=== PATIENT | male | born 1975 | race African-American/Black ===

== ENCOUNTER 2018-01-14 18:54 | Emergency (ER) | payer MEDICAID ==
[~2018-01-14] VITALS: Ht 175.3 cm; Wt 81.6 kg
[2018-01-14 19:01] VITALS: BP 132/72
[2018-01-14 19:30] VITALS: BP_SYST 138; BP_DIAS 6; BP_DIAS 76
[2018-01-14 19:33] LABS: BASOPHILS % (AUTO) 1.4 % (0.0-2.0); EOSINOPHILS % (AUTO) 0.5 % (0.0-3.0); HEMATOCRIT 49.4 % (42.0-52.0); HEMOGLOBIN 17.2 G/DL (14.2-18.0); LYMPHOCYTES % (AUTO) 44.5 % (20.0-45.0); MEAN CORPUSCULAR VOLUME 89 FL (80-99); NEUTROPHILS % (AUTO) 47.6 % (45.0-75.0); PLATELET COUNT 322 K/UL (150-450); RED BLOOD COUNT 5.52 M/UL (4.70-6.10); RED CELL DISTRIBUTION WIDTH 10.8 % (11.6-14.8); WHITE BLOOD COUNT 15.1 K/UL (4.8-10.8)
--- NOTE | 2018-01-14 19:41 | Emergency Room Report ---
History of Present Illness General Chief Complaint: Syncope Source: Patient, Medical Record Present Illness HPI Patient was disharged completely alert and then was seen unresponsive in the driveway laying on the ground. He has been using PCP. Please refer to prior evaluation. He had to be lifted off the ground onto a gurney. Allergies: Coded Allergies: No Known Allergies (Unverified , 01/14/18) Patient History Limited by: medical condition Past Medical History: none Social History: Reports: drug use - PCP Social History Narrative with friends Reviewed Nursing Documentation: PMH: Agreed, PSxH: Agreed Nursing Documentation-PMH Past Medical History: No History, Except For Review of Systems All Other Systems: negative except mentioned in HPI - see prior history, currently, unable to give answers Physical Exam Vital Signs Date Time Temp Pulse Resp B/P (MAP) Pulse Ox O2 Delivery O2 Flow Rate FiO2 01/14/18 19:01 97.7 93 37 132/72 98 Room Air 97.7 Sp02 EP Interpretation: reviewed, normal General Appearance: other - eyes open, not verbalize, mucle rigidity, Stupor Head: normocephalic, atraumatic Eyes: bilateral eye PERRL, bilateral eye EOMI - vertical nystagmus, bilateral eye Scleral Injection ENT: moist mucus membranes Neck: supple Respiratory: lungs clear, normal breath sounds Cardiovascular #1: regular rate, rhythm Cardiovascular #2: 2+ radial (R) Gastrointestinal: normal inspection, non tender, no mass, non-distended, decreased bowel sounds Musculoskeletal: back normal, other - no deformity Neurologic: motor strength/tone normal, DTRs symmetric, other - ebulic, holding muscles rigidly, eyes open, occasionally with tongue protruding/mouth open Psychiatric: other - stupor Reflexes: 2+ knee (R), 2+ knee (L) Skin: normal inspection, warm/dry Medical Decision Making Diagnostic Impression: Primary Impression: PCP (phencyclidine) abuse Additional Impressions: Altered level of consciousness AMA ER Course Patient was discharged fully alert and appropriate then collapsed in front of ED and is stuporous. DDX: PCP, re-ingestion vs cyclic stupor, seizure, electrolyte abnormality, bleed, EPS (less likely with stupor) amongst others. Evaluation with cardiac monitoring, CT head, labs. See prior w/u with EKG and + tox screen. IV hydration. Non behavioral restraints ordered. Patient awake. Still not understand what happened. Labs remarkable only for mildly elevated WBC, glucose and creat. CT no bleed. Patient pulled out IV and insisted on leaving (restraints had not been applied) . Fully ambulatory. Halted until friend arrived. Told of risk of . Friend witness at time and agrees to watch over the patient. Patient states he knows what is happening and states there is no risk. AMA signed. Laboratory Tests Test 01/14/18 19:13 White Blood Count 15.1 K/UL (4.8-10.8) H Red Blood Count 5.52 M/UL (4.70-6.10) Hemoglobin 17.2 G/DL (14.2-18.0) Hematocrit 49.4 % (42.0-52.0) Mean Corpuscular Volume 89 FL (80-99) Mean Corpuscular Hemoglobin 31.2 PG (27.0-31.0) H Mean Corpuscular Hemoglobin Concent 34.9 G/DL (32.0-36.0) Red Cell Distribution Width 10.8 % (11.6-14.8) L Platelet Count 322 K/UL (150-450) Mean Platelet Volume 8.3 FL (6.5-10.1) Neutrophils (%) (Auto) 47.6 % (45.0-75.0) Lymphocytes (%) (Auto) 44.5 % (20.0-45.0) Monocytes (%) (Auto) 6.0 % (1.0-10.0) Eosinophils (%) (Auto) 0.5 % (0.0-3.0) Basophils (%) (Auto) 1.4 % (0.0-2.0) Sodium Level 139 MMOL/L (136-145) Potassium Level 3.5 MMOL/L (3.5-5.1) Chloride Level 104 MMOL/L (98-107) Carbon Dioxide Level 24 MMOL/L (21-32) Anion Gap 11 mmol/L (5-15) Blood Urea Nitrogen 12 mg/dL (7-18) Creatinine 1.3 MG/DL (0.55-1.30) Estimate Glomerular Filtration Rate > 60 mL/min (>60) Glucose Level 131 MG/DL (74-106) H Calcium Level 9.4 MG/DL (8.5-10.1) Total Bilirubin 0.2 MG/DL (0.2-1.0) Aspartate Amino Transferase (AST) 20 U/L (15-37) Alanine Aminotransferase (ALT) 31 U/L (12-78) Alkaline Phosphatase 79 U/L (46-116) Total Creatine Kinase 241 U/L (26-308) Total Protein 8.3 G/DL (6.4-8.2) H Albumin 4.3 G/DL (3.4-5.0) Globulin 4.0 g/dL Albumin/Globulin Ratio 1.1 (1.0-2.7) Salicylates Level 3.5 ug/mL (2.8-20) Acetaminophen Level > 2 MCG/ML (10-30) L Serum Alcohol < 3 mg/dL Rhythm Strip Diag. Results Rhythm: NSR, no PVC's, no ectopy CT/MRI/US Diagnostic Results CT/MRI/US Diagnostic Results : Imaging Test Ordered: head Impression no mass, bleed or fx Last Vital Signs Date Time Temp Pulse Resp B/P (MAP) Pulse Ox O2 Delivery O2 Flow Rate FiO2 01/14/18 19:01 97.7 93 37 132/72 98 Room Air 97.7 Status: improved Disposition: AGAINST MEDICAL ADVICE Condition: Unknown Mike Regan M.D. Jan 14, 2018 19:41
[2018-01-14 19:42] LABS: ANION GAP 11 mmol/L (5-15); BLOOD UREA NITROGEN 12 mg/dL (7-18); CALCIUM 9.4 MG/DL (8.5-10.1); CARBON DIOXIDE 24 MMOL/L (21-32); CHLORIDE 104 MMOL/L (98-107); CREATININE 1.3 MG/DL (0.55-1.30); POTASSIUM 3.5 MMOL/L (3.5-5.1); SODIUM 139 MMOL/L (136-145)
[2018-01-14 19:45] VITALS: BP 138/76
[2018-01-14 19:46] LABS: ALANINE AMINOTRANSFERASE 31 U/L (12-78); ALBUMIN 4.3 G/DL (3.4-5.0); ALBUMIN/GLOBULIN RATIO 1.1 (1.0-2.7); ALKALINE PHOSPHATASE 79 U/L (46-116); ASPARTATE AMINO TRANSFERASE 20 U/L (15-37); BILIRUBIN,TOTAL 0.2 MG/DL (0.2-1.0); CREATINE KINASE 241 U/L (26-308)
--- NOTE | 2018-01-15 10:09 | Diagnostic Imaging Report ---
Indication: Altered level of consciousness Technique: Contiguous 5 mm thick transaxial imaging of the head obtained in a Siemens Sensation [address] scanner. Soft tissue and bone windows generated. Automatic Exposure Control was utilized. Total Dose length Product (DLP): 1291.[address] Dose Index Volume (CTDIvol): 70.38 mGy Comparison: none Findings: The size and configuration of the cortical sulci, basal cisterns, and ventricles are within normal limits for age. There is no mass effect, midline shift, or edema identified. There is no evidence of acute hemorrhage or abnormal intra-axial or extra-axial fluid collections. The bones and soft tissues are unremarkable. Impression: No mass effect, edema or acute bleed. The CT scanner at [facility] is accredited by the [employer] and the scans are performed using dose optimization techniques as appropriate to a performed exam including Automatic Exposure control.
== END 2018-01-14 19:55 | disposition left against medical advice (07) ==
LOC: EMR 19:00
DX: F16.10 Hallucinogen abuse, uncomplicated (principal); R41.82 Altered mental status, unspecified; R55 Syncope and collapse
CPT/HCPCS: 36415; 70450; 80053; 80329; 82550; 85025; 96374; 99284

== ENCOUNTER → 2018-01-14 | Emergency (ER) | payer MEDICAID ==
[~2018-01-14] VITALS: Ht 182.9 cm; Wt 95.3 kg
[2018-01-14 16:29] VITALS: BP 134/95
--- NOTE | 2018-01-14 16:39 | Emergency Room Report ---
History of Present Illness General Chief Complaint: Altered Level of Consciousness Source: Patient Present Illness HPI Patient was found unresponsive. Paramedics were called and patient initially not responding during initial assessment. This improved. Glucose normal in field. He states this happened to him before. The patient admits to doing PCP. He denies any chest pain, cough, shortness of breath, nausea, vomiting, diarrhea, headache, palpitations, joint pain, abdominal pain, fever. He denies SI or HI. Allergies: Coded Allergies: No Known Allergies (Unverified , 01/14/18) Patient History Past Medical History: none Social History: Reports: drug use - PCP Social History Narrative with friends Reviewed Nursing Documentation: PMH: Agreed, PSxH: Agreed Nursing Documentation-PMH Past Medical History: No Stated History Review of Systems All Other Systems: negative except mentioned in HPI Physical Exam Vital Signs Date Time Temp Pulse Resp B/P (MAP) Pulse Ox O2 Delivery O2 Flow Rate FiO2 01/14/18 16:19 100.0 88 16 134/95 98 Room Air 100.0 Sp02 EP Interpretation: reviewed, normal General Appearance: well appearing, no apparent distress, GCS 15 Head: normocephalic, atraumatic Eyes: bilateral eye PERRL, bilateral eye EOMI - no nystagmus, bilateral eye Scleral Injection ENT: moist mucus membranes - no lingual macerations Neck: supple Respiratory: lungs clear, normal breath sounds Cardiovascular #1: regular rate, rhythm Cardiovascular #2: 2+ radial (R) Gastrointestinal: normal inspection, normal bowel sounds, non tender, no mass, non-distended Musculoskeletal: back normal, gait/station normal, normal range of motion Neurologic: alert, oriented x3, manager housekeeping III-XII nml as tested, motor strength/tone normal, DTRs symmetric, sensory intact, cerebellar normal, normal gait, speech normal Psychiatric: mood/affect normal Skin: normal inspection, warm/dry Medical Decision Making Diagnostic Impression: Primary Impression: Altered level of consciousness Additional Impression: PCP (phencyclidine) abuse ER Course Patient presents with transient stupor. DDx: seizure, PCP, syncope, other ingestions, electrolyte abnormalities amongst others. He admits to PCP and this is likely explanation. Evaluation with EKG, labs and treatment with IV hydration. Due to the cyclic nature of this ingestion, the patient will be observed on a court monitor. The lack of vertical nystagmus suggests possible wearing off of drug. Based on exam, no CT or CXR indicated. EKG normal. Labs + PCP. Patient wants to go. Told needed further observation Patient complied. Ambulatory, no SI. Discharged to care of friends. Patient stable for outpatient observation and treatment. Laboratory Tests Test 01/14/18 17:12 Urine Opiates Screen Negative (NEGATIVE) Urine Barbiturates Screen Negative (NEGATIVE) Phencyclidine (PCP) Screen Positive (NEGATIVE) H Urine Amphetamines Screen Negative (NEGATIVE) Urine Benzodiazepines Screen Negative (NEGATIVE) Urine Cocaine Screen Negative (NEGATIVE) Urine Marijuana (THC) Screen Positive (NEGATIVE) H EKG Diagnostic Results Rate: normal Rhythm: NSR ST Segments: no acute changes Rhythm Strip Diag. Results EP Interpretation: yes Rhythm: NSR, no PVC's, no ectopy Last Vital Signs Date Time Temp Pulse Resp B/P (MAP) Pulse Ox O2 Delivery O2 Flow Rate FiO2 01/14/18 18:00 99.3 20 142/81 98 Room Air 99.3 01/14/18 16:19 88 Status: improved Disposition: HOME, SELF-CARE Condition: Improved Mike Regan M.D. Jan 14, 2018 16:39
[2018-01-14 17:31] VITALS: BP 142/81
[2018-01-14 18:00] VITALS: BP 142/81
--- NOTE | 2018-01-17 20:19 | Cardiology Report ---
APPROVED REPORT EKG Measurement Heart [id number] Normal sinus rhythm Nonspecific T wave abnormality Abnormal ECG
== END | disposition home or self-care (01) ==
LOC: EDBD 16:24 → EMR 16:30
DX: R41.82 Altered mental status, unspecified (principal); F16.10 Hallucinogen abuse, uncomplicated
CPT/HCPCS: 80307; 93005; 99284